=== PATIENT | male | born 1940 | race Caucasian/White ===

== ENCOUNTER 2017-04-24 06:46 | Emergency (ER) | payer OTHER ==
[~2017-04-24] VITALS: Ht 175.3 cm; Wt 99.4 kg
[2017-04-24 07:24] LABS: BASOPHIL COUNT 0.1 K/uL (0-0.1); EOSINOPHIL (%) 0.7 % (0-5); EOSINOPHIL COUNT 0.1 K/uL (0-0.3); HEMATOCRIT 49.4 % (38.0-50.0); IMMATURE GRANULOCYTE (%) 0.5 % (0.0-0.7); INSTRUMENT ABS NEUTROPHIL CT 4.8 K/uL; LYMPHOCYTE COUNT 2.7 K/uL (1.0-2.8); MCH 28.1 PG (29.0-34.0); MCHC 32.2 G/DL (30.0-36.0); MCV 87.4 FL (86-99); MEAN PLAT.VOLUME 10.4 uM^3 (9.0-12.4); MONOCYTE (%) 9.1 % (3-12); MONOCYTE COUNT 0.8 K/uL (0-0.8); NEUTROPHIL (%) 56.9 % (45-76); NEUTROPHIL COUNT 4.8 K/uL (1.8-6.4); PLATELET COUNT 239 K/uL (156-360); RBC DIS.WIDTH-CV 13.4 % (11.8-14.6); RBC DIS.WIDTH-SD 43.4 % (39-53); RED BLOOD COUNT 5.65 M/uL (4.00-5.50); WHITE BLOOD COUNT 8.4 K/uL (4.1-10.2)
[2017-04-24 07:26] LABS: CARBON DIOXIDE (BICARBONATE) 31.4 MEQ/L (20-31)
[2017-04-24 07:37] LABS: CHLORIDE 106 mEq/L (99-109); POTASSIUM 4.1 mEq/L (3.7-5.4); SODIUM 141 mEq/L (136-147)
[2017-04-24 07:39] LABS: GLUCOSE 126 mg/dL (70-99)
[2017-04-24 07:40] LABS: ANION GAP 8 MEQ/L (2-14)
[2017-04-24 07:41] LABS: TOTAL BILIRUBIN 0.7 mg/dL (0.0-1.0)
[2017-04-24 07:42] LABS: ALKALINE PHOSPHATASE 68 IU/L (3-129)
[2017-04-24 07:43] LABS: GFR ESTIMATE (CALCULATED) > 59 mL/min/
[2017-04-24 07:44] LABS: UREA NITROGEN (BUN) 19 mg/dL (9-23)
[2017-04-24 07:45] LABS: TROP-I INTERPRETATION NEGATIVE; TROPONIN-I < 0.01 ng/mL (0.0-0.30)
[2017-04-24 07:52] LABS: D-DIMER ELISA 0.35 mg/L FEU (< 0.57)
[2017-04-24] MEDS ORDERED: PREDNISONE20 MG PO (08:26)
[2017-04-24] MEDS ORDERED: PROAIR HFA8.5 GM IH ×2 (08:26→09:27)
[2017-04-24] MEDS ORDERED: SIMVASTATIN40 MG PO (08:39)
[2017-04-24] MEDS ORDERED: IRBESARTAN-HCT1 EAC1 PO (08:40)
[2017-04-24 09:31] VITALS: BP 155/89
== END 2017-04-24 09:32 | disposition home or self-care (01) ==
LOC: EME 06:46
PROVIDERS: Physician Assistant
DX: R06.02 Shortness of breath (principal); R60.9 Edema, unspecified; R26.2 Difficulty in walking, not elsewhere classified; R14.0 Abdominal distension (gaseous); I10 Essential (primary) hypertension; E78.5 Hyperlipidemia, unspecified
CPT/HCPCS: 71020; 80053; 82803; 83880; 84484; 85025; 85379; 93005; 94640; 99281; 99284; J7512

== ENCOUNTER 2018-02-24 17:23 | Emergency (ER) | payer OTHER ==
[~2018-02-24] VITALS: Ht 172.7 cm; Wt 95.1 kg
[~2018-02-24 17:23] MED LIST: IRBESARTAN-HCT1 EAC1 PO; PREDNISONE20 MG PO; PROAIR HFA8.5 GM IH; SIMVASTATIN40 MG PO
[2018-02-24] MEDS ORDERED: MOTRIN800 MG PO (18:22)
[2018-02-24] MEDS ORDERED: SKELAXIN800 MG PO (18:22)
[2018-02-24] MEDS ORDERED: VOLTAREN 1% GE100 GM TP (18:22)
[2018-02-24 18:31] VITALS: BP 175/84
== END 2018-02-24 18:33 | disposition home or self-care (01) ==
LOC: EXP 17:23 → EME 17:23 → EXP 18:33
DX: M25.552 Pain in left hip (principal); M54.30 Sciatica, unspecified side; E78.5 Hyperlipidemia, unspecified; Z86.79 Personal history of other diseases of the circulatory system; Z98.890 Other specified postprocedural states
CPT/HCPCS: 99281; 99283; J1885